=== PATIENT | female | born 1980 | race Caucasian/White ===

== ENCOUNTER 2020-10-01 16:38 | Emergency (ER) | payer OTHER, SELFPAY ==
--- NOTE | 2020-10-01 | XR_ITS ---
EXAMINATION: XR CHEST CLINICAL INFORMATION: Shortness of breath COMPARISON: 09/23/2019 TECHNIQUE: Frontal portable view of the chest was obtained. 5:36 PM FINDINGS: No significant abnormality is noted involving the heart, lungs, mediastinum, bony thorax or soft tissues. XR/XR chest 1V IMPRESSION: Unremarkable examination.
[2020-10-01 17:14] VITALS: BP 138/68; PULSE 99; RESP 16; TEMP 37.2; O2SAT 98; BMI 36.6
--- NOTE | 2020-10-01 18:43 | ED.GENADULT ---
HPI - General Adult General Chief complaint: General Medical Stated complaint: URI Time Seen by Provider: 10/01/20 18:43 History of Present Illness HPI narrative: Patient complains of cough and runny nose beginning yesterday, no fever no chills no shortness of breath no calf pain no leg swelling Symptoms are mild and they have been here for 1 day Related Data Allergies Allergy/AdvReac Type Severity Reaction Status Date / Time almond [ALMOND] Allergy Severe ANAPHYLAXIS Verified 10/01/20 17:19 Penicillins Allergy Intermediate RASH Unverified 08/01/20 15:49 penicillin V Allergy Unknown rash Verified 01/26/18 00:00 PENICILLIN Allergy Unknown RASH Uncoded 07/01/17 00:00 Review of Systems Review of Systems: Positive for cough and runny nose There is no fever no chills no weakness no confusion no headache no sore throat no neck pain no shortness of breath no sputum no leg swelling no abdominal pain no nausea vomiting or diarrhea, no skin rash Yes all other systems are reviewed and are negative PMFSH Past Medical History Source: nursing notes reviewed Medical History (Updated 10/02/20 @ 00:00 by Raymon Stanton) ADHD Anemia Iron deficiency Social History Social History Alcohol intake: never Smoking Status: Current every day smoker Smoked in Last 30 Days: No Use of substances other than those prescribed or required for medical reasons: No Substance Use Type: Marijuana Advance Directives: No Advance Directives Information Provided: Yes Physical Exam Vital Signs: Vital Signs: Last Vital Signs Temp 99 F 10/01/20 17:14 Pulse 99 10/01/20 17:14 Resp 16 10/01/20 17:14 BP 138/68 10/01/20 17:14 Pulse Ox 98 10/01/20 17:14 Body Mass Index 36.6 General appearance comfortable no acute distress cooperative A&O x3 The sinuses are not tender The pharynx has no swelling no redness no tonsillar swelling no exudate uvula midline no drooling The chest is clear to auscultation bilaterally with full equal symmetrical breath sounds, no respiratory distress The neck is supple Extremities full range of motion x4 no edema Neuro no focal deficit Skin no rash Course Course Course Narrative: Patient remains comfortable, speaking full sentences no shortness of breath throughout visit Chest x-ray was read reviewed and radiology report was negative and patient is discharged with diagnosis of viral syndrome, COVID swab was done Discharge Plan Discharge Clinical Impression: Acute viral syndrome Patient Disposition: Home, Self-Care Additional Instructions: Chest x-ray was normal, no pneumonia The cough and runny nose could definitely be COVID so wear mask and be careful around people We will call you with COVID test results in 2-3 days If your coughing and have her runny nose you can still have COVID even with the negative tests the test is not perfect and misses many cases Stand Alone Forms: Work/School Release Interventions: ED Discharge Assessment Last Done: 10/01/20 19:01 Discharge Date/Time: 10/01/20 19:04
== END 2020-10-01 19:04 | disposition home or self-care (01) ==
PROVIDERS: Physician Assistant Medical; Emergency Provider Emergency Medicine; PCP Internal Medicine
DX: B34.9 Viral infection, unspecified (principal); R05 Cough; Z20.828 Contact with and (suspected) exposure to other viral communicable diseases; F17.200 Nicotine dependence, unspecified, uncomplicated; Z71.6 Tobacco abuse counseling
CPT/HCPCS: 71045; 99283; 99284; U0003

== ENCOUNTER 2020-10-17 13:38 | Outpatient (REF) | payer OTHER, SELFPAY | END 2020-10-17 13:39 | disposition home or self-care (01) | LOC: HO.LAB 13:38 | PROVIDERS: Visit Provider Internal Medicine | DX: Z20.828 Contact with and (suspected) exposure to other viral communicable diseases (principal) | CPT/HCPCS: C9803; U0003 ==